=== PATIENT | male | born 1990 | race African-American/Black ===

== ENCOUNTER 2018-02-05 23:57 | Emergency (ER) | payer SELFPAY ==
[~2018-02-05] VITALS: Ht 180.3 cm; Wt 108.6 kg
[2018-02-06 00:54] LABS: BASO # 0.1 (0.02-0.10); EOS % 0.2 % (0.0-4.0); HEMATOCRIT 50.9 % (42.0-52.0); HEMOGLOBIN 17.8 g/dL (13.5-18.0); MEAN CELL VOLUME 84 fl (78-100); MEAN CORPUSCULAR HEMOGLOBIN 29 pg (27-31); MEAN CORPUSCULAR HGB CONC 35 g/dL (33-37); MEAN PLATELET VOLUME 9.5 fl (7.4-10.4); NEU # 5.6 (1.40-6.50); PLATELET COUNT 297 K/mm3 (130-400); RED BLOOD COUNT 6.09 M/mm3 (4.20-5.60); RED CELL DISTRIBUTION WIDTH 13.2 % (11.5-14.5); WHITE BLOOD COUNT 11.6 K/mm3 (4.8-10.8)
[2018-02-06 01:03] LABS: ALBUMIN 4.3 g/dL (3.5-5.0); BUN/CREATININE RATIO 11.7 (6.0-26.0); POTASSIUM 4.1 mmol/L (3.6-5.0); TOTAL BILIRUBIN 0.7 mg/dL (0.2-1.3); TOTAL PROTEIN 7.8 g/dL (6.3-8.2)
[2018-02-06 01:05] LABS: LYMPH# 4.8 (1.50-4.00)
[2018-02-06 01:11] LABS: URINE APPEARANCE CLEAR; URINE COLOR YELLOW; URINE PROTEIN(semi-quant) NEGATIVE (NEGATIVE)
[2018-02-06 01:12] LABS: URINE BILIRUBIN NEGATIVE (NEGATIVE); URINE BLOOD NEGATIVE (NEGATIVE); URINE GLUCOSE NEGATIVE (NEGATIVE); URINE KETONE 1+ (NEGATIVE); URINE LEUKOCYTE ESTERASE NEGATIVE (NEGATIVE); URINE NITRATE NEGATIVE (NEGATIVE); URINE UROBILINOGEN NORMAL (NORMAL); URINE WBC 0-1 /hpf (0-3)
[2018-02-06] MEDS ORDERED: KETOROLAC10 MG PO (01:49)
[2018-02-06 02:05] VITALS: BP 120/88
== END 2018-02-06 02:05 | disposition home or self-care (01) ==
LOC: ED 23:57
PROVIDERS: Family Medicine
DX: R09.1 Pleurisy (principal); F17.200 Nicotine dependence, unspecified, uncomplicated
CPT/HCPCS: J1885

== ENCOUNTER 2018-08-21 13:51 | Emergency (ER) | payer OTHER ==
[~2018-08-21] VITALS: Ht 180.3 cm; Wt 102.3 kg
[~2018-08-21 13:51] MED LIST: KETOROLAC10 MG PO
[2018-08-21 15:11] LABS: EOS # 0.1 (0.04-0.40); EOS % 1.4 % (0.0-4.0); HEMATOCRIT 48.3 % (42.0-52.0); HEMOGLOBIN 16.4 g/dL (13.5-18.0); LYMPH# 3.3 (1.50-4.00); MEAN CELL VOLUME 85 fl (78-100); MEAN CORPUSCULAR HEMOGLOBIN 29 pg (27-31); MEAN CORPUSCULAR HGB CONC 34 g/dL (33-37); MEAN PLATELET VOLUME 9.3 fl (7.4-10.4); MONO # 0.7 (0.20-0.80); NEU # 3.6 (1.40-6.50); PLATELET COUNT 247 K/mm3 (130-400); RED BLOOD COUNT 5.67 M/mm3 (4.20-5.60); RED CELL DISTRIBUTION WIDTH 14.2 % (11.5-14.5); WHITE BLOOD COUNT 7.7 K/mm3 (4.8-10.8)
[2018-08-21 15:14] LABS: ALBUMIN 4.6 g/dL (3.5-5.0); CALCIUM 9.4 mg/dL (8.4-10.2); POTASSIUM 4.4 mmol/L (3.6-5.0); TOTAL BILIRUBIN 0.6 mg/dL (0.2-1.3); TOTAL PROTEIN 8.1 g/dL (6.3-8.2)
[2018-08-21] MEDS ORDERED: ZOFRAN ODT4 MG PO (16:57)
[2018-08-21 17:20] VITALS: BP 142/94
== END 2018-08-21 17:20 | disposition home or self-care (01) ==
LOC: ED 13:51
PROVIDERS: Family Medicine
DX: R55 Syncope and collapse (principal); K21.9 Gastro-esophageal reflux disease without esophagitis; F17.210 Nicotine dependence, cigarettes, uncomplicated; Z90.49 Acquired absence of other specified parts of digestive tract
CPT/HCPCS: J7030

== ENCOUNTER 2018-10-03 23:26 | Emergency (ER) | payer OTHER ==
[~2018-10-03] VITALS: Ht 180.3 cm; Wt 95.5 kg
[~2018-10-03 23:26] MED LIST changes: +ZOFRAN ODT4 MG PO
[2018-10-04 00:37] LABS: HEMATOCRIT 47.9 % (42.0-52.0); HEMOGLOBIN 16.3 g/dL (13.5-18.0); MEAN CELL VOLUME 87 fl (78-100); MEAN CORPUSCULAR HEMOGLOBIN 29 pg (27-31); MEAN CORPUSCULAR HGB CONC 34 g/dL (33-37); MEAN PLATELET VOLUME 9.6 fl (7.4-10.4); PLATELET COUNT 251 K/mm3 (130-400); RED BLOOD COUNT 5.54 M/mm3 (4.20-5.60); RED CELL DISTRIBUTION WIDTH 13.6 % (11.5-14.5); WHITE BLOOD COUNT 16.5 K/mm3 (4.8-10.8)
[2018-10-04 00:52] LABS: ALBUMIN 4.5 g/dL (3.5-5.0); CALCIUM 8.8 mg/dL (8.4-10.2); POTASSIUM 3.7 mmol/L (3.6-5.0); TOTAL BILIRUBIN 0.7 mg/dL (0.2-1.3); TOTAL PROTEIN 7.5 g/dL (6.3-8.2)
[2018-10-04 01:09] LABS: LYMPHOCYTE 26 % (20-51); MONOCYTE 12 % (3-10); NEUTROPHILS 61 % (42-75)
[2018-10-04] MEDS ORDERED: DELTASONE20 M1 PO (01:34)
[2018-10-04] MEDS ORDERED: ZITHROMAX 250M250 MG PO (01:34)
[2018-10-04 01:38] VITALS: BP 110/71
== END 2018-10-04 01:38 ==
LOC: ED 23:26
PROVIDERS: Nurse Practitioner
DX: J40 Bronchitis, not specified as acute or chronic (principal); F41.9 Anxiety disorder, unspecified; G40.89 Other seizures; F17.210 Nicotine dependence, cigarettes, uncomplicated; Z88.8 Allergy status to other drugs, medicaments and biological substances; Z90.49 Acquired absence of other specified parts of digestive tract
CPT/HCPCS: J7512

== ENCOUNTER 2019-07-26 17:38 | Emergency (ER) | payer SELFPAY ==
[~2019-07-26 17:38] MED LIST changes: +DELTASONE20 M1 PO; +ZITHROMAX 250M250 MG PO
[2019-07-26 17:43] VITALS: BP 105/68
[2019-07-26 18:06] LABS: BASO # 0.1 (0.02-0.10); EOS # 0.3 (0.04-0.40); EOS % 3.6 % (0.0-4.0); HEMATOCRIT 49.9 % (42.0-52.0); HEMOGLOBIN 16.6 g/dL (13.5-18.0); MEAN CELL VOLUME 87 fl (78-100); MEAN CORPUSCULAR HEMOGLOBIN 29 pg (27-31); MEAN CORPUSCULAR HGB CONC 33 g/dL (33-37); MONO # 0.6 (0.20-0.80); NEU # 4.9 (1.40-6.50); PLATELET COUNT 231 K/mm3 (130-400); RED BLOOD COUNT 5.77 M/mm3 (4.20-5.60); RED CELL DISTRIBUTION WIDTH 14.4 % (11.5-14.5); WHITE BLOOD COUNT 9.1 K/mm3 (4.8-10.8)
[2019-07-26 18:16] LABS: ALBUMIN 4.5 g/dL (3.5-5.0); POTASSIUM 3.7 mmol/L (3.5-5.1)
[2019-07-26 18:18] LABS: CALCIUM 9.2 mg/dL (8.3-10.5)
[2019-07-26 18:19] LABS: TOTAL PROTEIN 7.6 g/dL (6.4-8.3)
[2019-07-26 18:21] LABS: TOTAL BILIRUBIN 0.3 mg/dL (0.2-1.2)
== END 2019-07-26 19:20 | disposition left against medical advice (07) ==
LOC: ED 17:38
PROVIDERS: Nurse Practitioner Family
DX: F10.129 Alcohol abuse with intoxication, unspecified (principal); W07.XXXA Fall from chair, initial encounter; Y90.8 Blood alcohol level of 240 mg/100 ml or more

== ENCOUNTER 2020-01-18 19:24 | Emergency (ER) | payer OTHER ==
[~2020-01-18] VITALS: Ht 180.3 cm; Wt 84.1 kg
[2020-01-18 19:40] LABS: EOS # 0.2 (0.04-0.40); EOS % 2.5 % (0.0-4.0); HEMATOCRIT 47.9 % (42.0-52.0); HEMOGLOBIN 16.8 g/dL (13.5-18.0); LYMPH# 3.5 (1.50-4.00); MEAN CELL VOLUME 81 fl (78-100); MEAN CORPUSCULAR HEMOGLOBIN 28 pg (27-31); MEAN CORPUSCULAR HGB CONC 35 g/dL (33-37); MEAN PLATELET VOLUME 10.1 fl (7.4-10.4); MONO # 0.6 (0.20-0.80); NEU # 4.2 (1.40-6.50); PLATELET COUNT 291 K/mm3 (130-400); RED BLOOD COUNT 5.94 M/mm3 (4.20-5.60); RED CELL DISTRIBUTION WIDTH 13.3 % (11.5-14.5); WHITE BLOOD COUNT 8.6 K/mm3 (4.8-10.8)
[2020-01-18 19:50] LABS: ALBUMIN 4.6 g/dL (3.5-5.0)
[2020-01-18 19:51] LABS: POTASSIUM 4.2 mmol/L (3.5-5.1)
[2020-01-18 19:52] LABS: CALCIUM 9.8 mg/dL (8.3-10.5)
[2020-01-18 19:53] LABS: TOTAL PROTEIN 7.7 g/dL (6.4-8.3)
[2020-01-18 19:55] LABS: TOTAL BILIRUBIN 1.2 mg/dL (0.2-1.2)
[2020-01-18 20:04] LABS: URINE APPEARANCE CLEAR; URINE BILIRUBIN NEGATIVE (NEGATIVE); URINE BLOOD NEGATIVE (NEGATIVE); URINE COLOR YELLOW; URINE GLUCOSE NEGATIVE (NEGATIVE); URINE KETONE 1+ (NEGATIVE); URINE LEUKOCYTE ESTERASE NEGATIVE (NEGATIVE); URINE MUCUS PRESENT (NOT PRESENT); URINE NITRATE NEGATIVE (NEGATIVE); URINE PROTEIN(semi-quant) 1+ mg/dL (NEGATIVE); URINE UROBILINOGEN NORMAL (NORMAL)
[2020-01-18] MEDS ORDERED: ZOLOFT 100MG100 MG PO ×2 (21:45→21:54)
[2020-01-18] MEDS ORDERED: MIRALAX17 GM PO (21:54)
[2020-01-18 21:56] VITALS: BP 115/72
== END 2020-01-18 22:10 ==
LOC: ED 19:24
PROVIDERS: Physician Assistant
DX: K59.00 Constipation, unspecified (principal); E86.0 Dehydration; F32.9 Major depressive disorder, single episode, unspecified; F41.9 Anxiety disorder, unspecified; F17.210 Nicotine dependence, cigarettes, uncomplicated; Z88.8 Allergy status to other drugs, medicaments and biological substances
CPT/HCPCS: J7030; Q9967

== ENCOUNTER → 2020-08-10 | Outpatient (CLI) | payer OTHER ==
[~2020-08-10] MED LIST changes: +MIRALAX17 GM PO; +ZOLOFT 100MG100 MG PO
== END ==
LOC: LAB 15:18
DX: U07.1 COVID-19 (principal)